=== PATIENT | female | born 1985 | race Caucasian/White ===

== ENCOUNTER 2017-01-29 12:08 | Inpatient (IN) | payer OTHER ==
[~2017-01-29] VITALS: Ht 154.9 cm; Wt 74.5 kg
[2017-01-29 12:21] VITALS: BP 107/60
[2017-01-29] MEDS ORDERED: MISOPROSTOL 25 MCG TABLET ONE (15:18)
[2017-01-29] MEDS ORDERED: LIDOCAINE 1%, 20ML ONE (15:18)
[2017-01-29] MEDS ORDERED: NEWBORN KIT ONE (15:18)
[2017-01-29] MEDS ORDERED: MISOPROSTOL 200 MCG TABLET ONE (15:19)
[2017-01-29] MEDS ORDERED: OXYTOCIN 30U/ 0.9% NaCL 500ML 500 ML ONE ×2 (15:19→19:55)
[2017-01-29] MEDS ORDERED: OXYTOCIN 30U/ 0.9% NaCL 500ML 500 ML IV PRN (15:21)
[2017-01-29] MEDS ORDERED: OXYTOCIN 30U/ 0.9% NaCL 500ML 500 ML IV ONE (15:21)
[2017-01-29] MEDS ORDERED: D5%-LACTATED RINGERS 1,000 ML IV SCH (15:21)
[2017-01-29] MEDS ORDERED: FENTANYL PF 100 MCG/2ML IV PRN (15:30)
[2017-01-29] MEDS ORDERED: FENTANYL PF 100 MCG/2ML IVPush PRN (15:30)
[2017-01-29 16:01] LABS: HEMATOCRIT 37.2 % (34.6-47.8); HEMOGLOBIN 12.6 g/dL (11.7-16.4); WHITE BLOOD COUNT 13.9 x10^3/uL (3.4-10)
[2017-01-29] MEDS: LACTATED RINGERS 1,000 ML IV SCH ×2 (16:14→18:08)
[2017-01-29] MEDS ORDERED: FLU VACC QS2017-18 (36MOS+) UP/PF 0.5 ML IM-VACC SCH (16:30)
[2017-01-29] MEDS ORDERED: FENTANYL/BUPIV./NS/PF 250 ML EPIDCONT SCH ×2 (17:36→18:17)
[2017-01-29] MEDS ORDERED: LACTATED RINGERS 1,000 ML IVBOLUS PRN ×2 (18:00→18:30)
[2017-01-29] MEDS ORDERED: FENTANYL PF 100 MCG/2ML ONE (18:04)
[2017-01-29] MEDS ORDERED: LACTATED RINGERS 1,000 ML IV SCH (18:17)
[2017-01-29] MEDS ORDERED: BUPIVACAINE/PF 0.25% ONE (18:18)
[2017-01-29] MEDS ORDERED: FENTANYL/BUPIV./NS/PF 0 ML EPIDCONT ONE (18:19)
[2017-01-29] MEDS ORDERED: NALOXONE 0.4 MG/ML, 1ML IVPush PRN (18:30)
[2017-01-29] MEDS ORDERED: EPHEDRINE 50 MG/ML, 1ML IVPush PRN (18:30)
[2017-01-29] MEDS ORDERED: ONDANSETRON 2MG/ML, 2ML IV PRN (19:00)
[2017-01-29] MEDS ORDERED: DOCUSATE 100 MG CAPSULE PO PRN (19:00)
[2017-01-29] MEDS ORDERED: OXYcodone/APAP 5/325MG TABLET PO PRN ×2 (19:00)
[2017-01-29] MEDS ORDERED: MISOPROSTOL 200 MCG TABLET PR PRN (19:00)
[2017-01-29] MEDS ORDERED: IBUPROFEN 800 MG TABLET PO PRN (19:00)
[2017-01-29] MEDS: OXYTOCIN 30U/ 0.9% NaCL 500ML 500 ML IV SCH (20:04)
[2017-01-29 21:00] VITALS: BP 96/58
[2017-01-30 00:40] VITALS: BP 99/58
[2017-01-30 04:40] VITALS: BP 98/60
[2017-01-30] MEDS: OXYTOCIN 30U/ 0.9% NaCL 500ML 500 ML IV SCH (04:40)
[2017-01-30 06:13] LABS: HEMATOCRIT 34.7 % (34.6-47.8); HEMOGLOBIN 11.6 g/dL (11.7-16.4); WHITE BLOOD COUNT 16.9 x10^3/uL (3.4-10)
[2017-01-30 07:55] VITALS: BP 104/71
[2017-01-30] MEDS ORDERED: PRENATAL VIT/IRON/FA 1 EACH TABLET PO SCH (09:00)
[2017-01-30 12:00] VITALS: BP 100/68
[2017-01-30 16:00] VITALS: BP 104/68
[2017-01-30] MEDS ORDERED: IBUP-1223 PO (16:22)
[2017-01-30] MEDS ORDERED: OXYC-302 PO (16:29)
== END 2017-01-30 19:20 | disposition home or self-care (01) | DRG 775 ==
LOC: LDOP 12:08 → LDIP 15:30 → 2NW 20:40
PROVIDERS: ADMIT Student in an Organized Health Care Education/Training Program; ATTEND Student in an Organized Health Care Education/Training Program
PROC: 10E0XZZ Delivery of Products of Conception, External Approach (ICD-10-PCS; principal; 2017-01-29)
PROC: 3E0S3BZ Introduction of Anesthetic Agent into Epidural Space, Percutaneous Approach (ICD-10-PCS; 2017-01-29)
PROC: 00HU33Z Insertion of Infusion Device into Spinal Canal, Percutaneous Approach (ICD-10-PCS; 2017-01-29)
DX: O80 Encounter for full-term uncomplicated delivery (principal); Z37.0 Single live birth; Z3A.38 38 weeks gestation of pregnancy
CPT/HCPCS: 36415; 85025; 86850; 86900; 89060; J3010; J2590; J7120; Q0114

== ENCOUNTER 2018-11-25 08:37 | Inpatient (IN) | payer MEDICAID ==
[~2018-11-25] VITALS: Ht 154.9 cm; Wt 78.1 kg
[2018-11-26 07:30] VITALS: BP 121/82
== END 2018-11-26 16:30 | disposition home or self-care (01) | DRG 560 ==
LOC: LDOP 08:37 → LDIP 09:37 → 2NW 16:58
PROVIDERS: ADMIT Student in an Organized Health Care Education/Training Program; ATTEND Student in an Organized Health Care Education/Training Program
PROC: 10E0XZZ Delivery of Products of Conception, External Approach (ICD-10-PCS; principal; 2018-11-25)
PROC: 3E0R3BZ Introduction of Anesthetic Agent into Spinal Canal, Percutaneous Approach (ICD-10-PCS; 2018-11-25)
PROC: 00HU33Z Insertion of Infusion Device into Spinal Canal, Percutaneous Approach (ICD-10-PCS; 2018-11-25)
DX: O80 Encounter for full-term uncomplicated delivery (principal); Z37.0 Single live birth; Z3A.38 38 weeks gestation of pregnancy
CPT/HCPCS: 36415; 85025; 86850; 86900; G0378; J3010; J2590; J7050; J7120